=== PATIENT | female | born 1985 ===

== ENCOUNTER 2021-01-16 11:16 | Day surgery (SDC) | payer MEDICAID ==
--- NOTE | 2021-01-15 13:53 | History and Physical Report ---
History of Present Illness Date of examination: 01/15/21 Chief complaint: desiring permanent sterilization History of present illness: 35 yo A1 otherwise uncomplicated presenting for bilateral tubal ligation with Filshie Clips. Hx Mirena IUD, but no longer wishes to have this management for BCM. Desires permanent sterilization. Past History Past Medical History: no pertinent history Past Surgical History: no surgical history Family/Genetic History: none Social history: no significant social history - Obstetrical History : 5 Para: 4 Hx # Term Pregnancies: 4 Spontaneous Abortions: 1 Number of Living Children: 4 Medications and Allergies Allergies Allergy/AdvReac Type Severity Reaction Status Date / Time No Known Allergies Allergy Unverified 01/08/21 10:18 Home Medications Medication Instructions Recorded Confirmed Last Taken Type No Known Home Medications [No 01/08/21 01/08/21 Unknown History Reported Home Medications] Review of Systems All systems: negative (expect HPI) - Physical Exam Cardiovascular: Regular rate Lungs: Positive: Clear to auscultation, Normal air movement Abdomen: Positive: normal appearance, normal bowel sounds Results All other labs normal. Assessment and Plan - Patient Problems (1) Encounter for sterilization Status: Acute Plan to address problem: To OR for bilateral tubal ligation with Filshie Clips and IUD removal --Consented in the chart --Questions solicited and answered --Desires permanent sterilization, discussion risk of regret and patient expressed understanding
[~2021-01-16 11:16] MED LIST: LACTATED RINGERS 1,000 ML IV SCH
[2021-01-16] MEDS ORDERED: ONDANSETRON 4 MG/2 ML INJ IV PRN ×2 (12:00→15:08)
[2021-01-16] MEDS ORDERED: HYDROmorphone 1 MG/1 ML INJ IV PRN ×2 (12:00)
--- NOTE | 2021-01-16 12:06 | Anesthesia Day of Surgery ---
Anesthesia Day of Surgery - Day of Surgery Patient Examined: Yes Patient H&P Reviewed: Yes Patient is NPO: Yes
--- NOTE | 2021-01-16 12:09 | Anesthesia Consultation ---
Anesthesia Consult and Med Hx Date of service: 01/16/21 - Airway Anesthetic Teeth Evaluation: Good ROM Head & Neck: Adequate Mental/Hyoid Distance: Adequate Mallampati Class: Class II Intubation Access Assessment: Good - Pre-Operative Health Status ASA Pre-Surgery Classification: ASA1 Proposed Anesthetic Plan: General - Pulmonary Hx Smoking: No - Cardiovascular System Hx Hypertension: No - Gastrointestinal Hx Gastroesophageal Reflux Disease: No - Endocrine Hx Renal Disease: No Hx Non-Insulin Dependent Diabetes: No
[2021-01-16] MEDS ORDERED: ACETAMINOPHEN 500 MG TAB PO SCH (12:30)
[2021-01-16 12:53] LABS: Basophils % (Auto) 0.3 % (0.0-1.8); Eosinophils # (Auto) 0.2 K/mm3 (0.0-0.4); Eosinophils % (Auto) 2.1 % (0.0-4.3); Hematocrit 39.3 % (30.3-42.9); Hemoglobin 13.5 gm/dl (10.1-14.3); Lymphocytes # (Auto) 1.9 K/mm3 (1.2-5.4); Lymphocytes % (Auto) 26.1 % (13.4-35.0); Mean Corpuscular HGB Conc 35 % (30-34); Mean Corpuscular Volume 93 fl (79-97); Monocytes # (Auto) 0.4 K/mm3 (0.0-0.8); Monocytes % (Auto) 5.3 % (0.0-7.3); Platelet Count 236 K/mm3 (140-440); Red Blood Count 4.24 M/mm3 (3.65-5.03); Red Cell Distribution Width 13.3 % (13.2-15.2)
[2021-01-16] MEDS ORDERED: MIDAZOLAM 2 MG/2 ML INJ IV NR (13:00)
[2021-01-16] MEDS ORDERED: CELECOXIB 200 MG CAP PO NR (13:00)
[2021-01-16] MEDS ORDERED: ROCURONIUM 50 MG/5 ML INJ IV ONE (14:08)
[2021-01-16] MEDS ORDERED: fentaNYL 100 MCG/2 ML INJ ONE (14:08)
[2021-01-16] MEDS ORDERED: propofoL 200 MG/20 ML VIAL IV ONE (14:08)
[2021-01-16] MEDS ORDERED: KETOROLAC 30 MG/1 ML INJ ONE (14:16)
[2021-01-16] MEDS ORDERED: ONDANSETRON 4 MG/2 ML INJ ONE (14:16)
[2021-01-16] MEDS ORDERED: dexAMETHasone 20 MG/5 ML VIAL ONE (14:16)
[2021-01-16] MEDS ORDERED: GLYCOPYRROLATE 0.4 MG/2 ML INJ ONE ×2 (14:48→14:49)
[2021-01-16] MEDS ORDERED: NEOSTIGMINE 10MG/10 ML INJ MDV ONE (14:49)
[2021-01-16] MEDS ORDERED: ACETAMINOPHEN 325 MG TAB PO PRN (15:08)
[2021-01-16] MEDS ORDERED: NALOXONE 0.4 MG/1 ML INJ IV PRN (15:08)
[2021-01-16] MEDS ORDERED: oxyCODONE /ACETAMINOPHEN 5-325MG TAB PO PRN (15:08)
[2021-01-16] MEDS ORDERED: METOCLOPRAMIDE 10 MG/2 ML INJ IV PRN (15:08)
[2021-01-16] MEDS ORDERED: MORPHINE 4 MG/1 ML INJ IV PRN (15:08)
[2021-01-16] MEDS ORDERED: ONDANSETRON 4 MG ODT TAB PO PRN (15:08)
[2021-01-16] MEDS ORDERED: IBUPROFEN 800 MG TAB PO PRN (15:08)
[2021-01-16] MEDS ORDERED: BUPIVACAINE/PF (0.25%) 2.5 MG/ML 10 ML VIAL INFILTRATI ONE (15:12)
[2021-01-16] MEDS ORDERED: SODIUM CHLORIDE 0.9% IRR 1,000 ML BOTTLE IR ONE (15:12)
--- NOTE | 2021-01-16 15:13 | Procedure Note ---
Date of procedure: 01/16/21 Pre-op diagnosis: desiring permanent sterilization, removal of IUD Post-op diagnosis: same Procedure: Preoperative diagnosis: Multiparous woman desiring permanent sterilization Postoperative diagnosis: Same Operation performed: 1. Exam under anesthesia 2. IUD removal 3. Laparoscopic bilateral tubal ligation with Filshie clips Surgeon: Lindsay López Anesthesia: General endotracheal anesthesia Estimated blood loss 20 cc IVF 900cc UOP 25cc Pathology Specimens: none Complications none Disposition and condition: To the PACU in stable condition and then discharged home Findings: 1. Small, mobile, anteverted uterus without adnexal masses on EUA 2. IUD removed without difficulty 2. Normal uterus and bilateral tubes and ovaries on laparoscopy 3. Normal-appearing liver, gallbladder next Statement of medical necessity 35 yo G 5 P 4A A1 who desires permanent sterilization and removal of IUD control. The patient was extensively counseled and offered reversal methods of contraception but declined. She was informed about the procedure failure rates and regret rates under the age of 30 years. The procedure risk, benefits, indications and alternatives were thoroughly reviewed with patient. Description of operation: After obtaining informed consent, the patient was taken to the operating room where satisfactory general endotracheal anesthesia was established. The patient was placed in modified supine position using Isaiah stirrups ensuring proper positioning and cushioning to avoid nerve injury. An exam under anesthesia was performed with the findings noted above. She was prepped and draped in the usual sterile fashion. Straight catheterization of the bladder was performed. The IUD was removed using the visible strings from the cervical os using uterine dressing forceps without difficulty. A Vcare manipulator was placed in order to aid in uterine manipulation. Attention was directed to the abdomen. A 5 mm incision was placed supraumbilically. With the patient horizontal, the camera and 5 mm trocar were introduced into the abdominal cavity while tenting up the abdominal wall with towel clips in order to gain entry into the abdominal cavity. Intraperitoneal placement was confirmed with initial pressure of 15 mmHg on insufflation. Pneumoperitoneum was obtained in the placed and the patient was placed in Trendelenburg position. A midline suprapubic incision was made with a scalpel and a 8 mm trocar was p laced under direct visualization. The blunt grasper was used in order to inspect the pelvis with the findings noted above. The fallopian tubes were identified and followed out to the fimbriated ends. The entire mid isthmic girth of the left tube was grasped perpendicularly without difficulty with applicator. The clip was applied and good applied with tubal blanching was noted. There was no bleeding in the mesosalpinx. The same procedure was performed on contralateral side. This procedure was completed x2 with a result of 2 Filshie clips on each tube. All instruments were removed. Suprapubic trocar was removed under direct verbalization with port site hemostasis noted. The pneumoperitoneum was reduced and the umbilical trocar was removed under direct visitation while with withdrawing the laparoscope. The patient was returned to horizontal dorsal supine position. Half percent Marcaine was injected into the incisions for anesthesia. The skin incisions were closed with 2-0 Vicryl in a subcuticular fashion and dressed with Dermabond. The Vcare manipulator was removed from vagina. The patient tolerated the procedure well was extubated without difficulty and transferred recovery room in good condition. Sponge, needle instrument counts were correct x2. There is no surgical or anesthetic complications. Anesthesia: GETA Surgeon: LINDSAY LÓPEZ JR Estimated blood loss: other (20cc) IV fluids: 900 Urine output: 25 Pathology: none Condition: stable Disposition: same day
[2021-01-16 16:24] VITALS: BP 139/76
--- NOTE | 2021-01-16 19:23 | Post Anesthesia Evaluation ---
- Post Anesthesia Evaluation Patient Participated: Yes Airway Patent: Yes Stable Respiratory Function: Yes Nausea/Vomiting: No Temp > 96.8F: Yes Pain Manageable: Yes Adequeate Hydration: Yes Anesthesia Complications: No Block Receding Appropriately: Not Applicable Patient on Ventilator: No
== END 2021-01-16 16:55 | disposition home or self-care (01) ==
LOC: OR 11:16
PROVIDERS: ATTEND Obstetrics & Gynecology
DX: Z30.2 Encounter for sterilization (principal); Z30.432 Encounter for removal of intrauterine contraceptive device; Z79.899 Other long term (current) drug therapy; Z98.890 Other specified postprocedural states
CPT/HCPCS: 36415; 58301; 58671; 81025; 85025; 86850; 86900; 86901; J1100; J1170; J1885; J2250; J2405; J2704; J2710; J3010; J7120